=== PATIENT | female | born 1960 | race Caucasian/White ===

== ENCOUNTER → 2019-05-13 | Emergency (ER) | payer BC ==
[~2019-05-13] VITALS: Wt 71.0 kg
[~2019-05-13] MED LIST: CYCL10TA7 PO; HYDR-4011 PO; HYDROCODONE/APAP (5/325) TAB PO ONE; IBUP800T48 PO; KETOROLAC 30 MG INJ IM STA
[2019-05-13 17:24] VITALS: BP 132/71; PULSE 78; RESP 18
--- NOTE | 2019-05-13 17:57 | ERD ---
ER Documentation Chief Complaint Chief Complaint BILATERAL RIB PAIN AFTER MECHANICAL INJURY HPI 58-year-old female presents with bilateral rib cage pain. It began on Thursday. There is no trauma but she states she over and she came back up and after that began developing pain. She is been taking Motrin 600 mg which does help. Denies any fall injury or trauma. No fever. No abdominal pain. No nausea or vomiting. ROS All systems reviewed and are negative except as per history of present illness. Medications Home Meds Active Scripts Hydrocodone/Acetaminophen ([place] 5-325 Tablet) 1 Each Tablet, 1 TAB PO Q6H PRN for PAIN, #15 TAB Prov:ALEXIA ROMERO PA-C 05/13/19 Ibuprofen* (Motrin*) 800 Mg Tab, 800 MG PO Q6, #30 TAB Prov:ALEXIA ROMERO PA-C 05/13/19 Cyclobenzaprine Hcl* (Cyclobenzaprine Hcl*) 10 Mg Tablet, 10 MG PO BID, #15 TAB Prov:ALEXIA ROMERO PA-C 05/13/19 Allergies Allergies: Coded Allergies: No Known Allergy (Unverified , 05/13/19) PMhx/Soc Medical and Surgical Hx: pt denies Medical Hx, pt denies Surgical Hx Hx Alcohol Use: No Hx Substance Use: No Hx Tobacco Use: No Smoking Status: Never smoker FmHx Family History: No diabetes Physical Exam Vitals Vital Signs Date Temp Pulse Resp B/P (MAP) Pulse Ox O2 O2 Flow FiO2 Time Delivery Rate 05/13/19 98.0 78 18 132/71 99 17:24 (91) Physical Exam INITIAL VITAL SIGNS: Reviewed by me GENERAL: Awake, alert and oriented x 4, well appearing, nontoxic, speaking in full sentences. No acute distress RESPIRATORY: Clear to auscultation bilaterally. Symmetric chest wall rise. No wheezing or rales. No accessory muscle use. CV: Regular rate and rhythm. No murmurs, rubs, or gallops. No bruising to rib cage, tender bilaterally of the lower rib cage lynch without any step-offs ABDOMEN: Soft, non-distended. Nontender. Negative [place]. Negative McBurneys point tenderness. No CVA tenderness bilaterally. No guarding. No rebound. Results 24 hrs Current Medications Medications Dose Sig/Ciro Start Time Status Last (Trade) Ordered Route PRN Stop Time Admin Dose Reason Admin Ketorolac 30 mg ONCE STAT 05/13/19 DC Tromethamine IM 17:48 (Toradol) 05/13/19 17:50 1 tab ONCE ONCE 05/13/19 Acetaminophen PO 18:00 / 05/13/19 18:01 Hydrocodone Bitart ([place] (5/325)) Procedures/MDM Patient has bilateral rib pain after bending over. No injury or trauma and therefore no imaging ordered. She was given Toradol and [place] here and discharged with ibuprofen Flexeril and [place]. Patient counseled regarding my diagnostic impression and care plan. Prior to discharge all questions answered. Pt agrees with treatment plan and understands strict return precautions. Pt is instructed to follow up with primary care provider within 24-48 hours. Precautionary instructions provided including instructions to return to the ER if not improving or for any worsening or changing symptoms or concerns. Departure Diagnosis: Primary Impression: Rib pain Condition: Stable Patient Instructions: Rib Contusion Additional Instructions: Call your primary care doctor TOMORROW for an appointment during the next 1-2 days.See the doctor sooner or return here if your condition worsens before your appointment time. ALEXIA ROMERO PA-C May 13, 2019 17:57
== END | disposition home or self-care (01) ==
LOC: EDUNIT# 17:21 → FTE 17:21
DX: R07.81 Pleurodynia (principal)
CPT/HCPCS: 96372; 99284; J1885